=== PATIENT | female | born 1945 | race Two or more races ===

== ENCOUNTER 2018-07-20 14:11 | Outpatient (CLI) | payer OTHER | END 2018-07-20 14:39 | disposition home or self-care (01) | LOC: RAD 501 14:11 | DX: S80.02XA Contusion of left knee, initial encounter (principal); S70.02XA Contusion of left hip, initial encounter ==

== ENCOUNTER 2018-11-04 10:03 | Outpatient (CLI) | payer OTHER | END 2018-11-04 10:20 | disposition home or self-care (01) | LOC: SONOGRAMA 10:03 | DX: R16.0 Hepatomegaly, not elsewhere classified (principal) ==

== ENCOUNTER → 2019-05-23 | Outpatient (CLI) | payer OTHER | END | disposition home or self-care (01) | LOC: MAMO-SONO 11:15 | DX: Z12.31 Encounter for screening mammogram for malignant neoplasm of breast (principal); Z87.898 Personal history of other specified conditions; N60.11 Diffuse cystic mastopathy of right breast; N60.12 Diffuse cystic mastopathy of left breast ==

== ENCOUNTER 2020-09-17 10:34 | Outpatient (CLI) | payer OTHER | END 2020-09-17 10:38 | disposition home or self-care (01) | LOC: NUCLEAR 10:34 | PROVIDERS: ATTEND Family Medicine | DX: M81.0 Age-related osteoporosis without current pathological fracture (principal) ==

== ENCOUNTER 2020-09-30 10:53 | Outpatient (CLI) | payer OTHER | END 2020-09-30 11:00 | disposition home or self-care (01) | LOC: RAD 10:53 | PROVIDERS: ATTEND Family Medicine | DX: S20.219A Contusion of unspecified front wall of thorax, initial encounter (principal); Y99.8 Other external cause status; R05 Cough ==

== ENCOUNTER 2021-05-06 11:21 | Outpatient (CLI) | payer OTHER | END 2021-05-06 11:28 | disposition home or self-care (01) | LOC: RAD 11:21 | PROVIDERS: ATTEND Family Medicine | DX: R05.8 Other specified cough (principal); I10 Essential (primary) hypertension ==

== ENCOUNTER 2022-05-12 11:17 | Outpatient (CLI) | payer OTHER | END 2022-05-12 11:21 | disposition home or self-care (01) | LOC: RAD 11:17 | PROVIDERS: ATTEND Family Medicine | DX: R06.00 Dyspnea, unspecified (principal) ==

== ENCOUNTER 2022-09-03 10:44 | Outpatient (CLI) | payer OTHER | END 2022-09-03 10:51 | disposition home or self-care (01) | LOC: RAD 10:44 | PROVIDERS: ATTEND Family Medicine | DX: M17.11 Unilateral primary osteoarthritis, right knee (principal) ==

== ENCOUNTER 2023-06-12 16:44 | Emergency (ER) | payer OTHER ==
[~2023-06-12] VITALS: Ht 157.5 cm; Wt 71.7 kg
[2023-06-12] MEDS ORDERED: SERTRALINE HCL100 MG (17:05)
[2023-06-12] MEDS ORDERED: BUPROPION XL300 MG (17:05)
[2023-06-12] MEDS ORDERED: PANTOPRAZOLE SO40 MG (17:05)
[2023-06-12] MEDS ORDERED: ROSUVASTATIN CA20 MG (17:05)
[2023-06-12] MEDS ORDERED: MUPIROCIN15 GM TOP (18:53)
[2023-06-12] MEDS ORDERED: CLEOCIN HCL300 MG PO (18:53)
== END 2023-06-12 19:08 | disposition home or self-care (01) ==
LOC: ER 16:44
DX: S61.411A Laceration without foreign body of right hand, initial encounter (principal); W55.01XA Bitten by cat, initial encounter; Y93.89 Activity, other specified; Y92.89 Other specified places as the place of occurrence of the external cause; Y99.9 Unspecified external cause status; Z88.0 Allergy status to penicillin
CPT/HCPCS: 12001; 90471; 90714; 99284; J1670

== ENCOUNTER 2023-07-12 10:37 | Outpatient (CLI) | payer OTHER ==
[~2023-07-12 10:37] MED LIST: BUPROPION XL300 MG; CLEOCIN HCL300 MG PO; MUPIROCIN15 GM TOP; PANTOPRAZOLE SO40 MG; ROSUVASTATIN CA20 MG; SERTRALINE HCL100 MG
== END 2023-07-12 10:43 | disposition home or self-care (01) ==
LOC: RAD 10:37
PROVIDERS: ATTEND Orthopaedic Surgery
DX: M17.11 Unilateral primary osteoarthritis, right knee (principal); M17.12 Unilateral primary osteoarthritis, left knee; M16.11 Unilateral primary osteoarthritis, right hip; M16.12 Unilateral primary osteoarthritis, left hip

== ENCOUNTER 2024-04-24 09:06 | Outpatient (CLI) | payer OTHER | END 2024-04-24 09:11 | disposition home or self-care (01) | LOC: RAD 09:06 | PROVIDERS: ATTEND Orthopaedic Surgery | DX: M25.561 Pain in right knee (principal); M25.562 Pain in left knee ==

== ENCOUNTER 2025-03-19 11:17 | Outpatient (CLI) | payer OTHER | END 2025-03-19 11:19 | disposition home or self-care (01) | LOC: RAD 11:17 | PROVIDERS: ATTEND General Practice | DX: M25.512 Pain in left shoulder (principal); M19.012 Primary osteoarthritis, left shoulder ==